=== PATIENT | female | born 2000 | race African-American/Black ===

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

== ENCOUNTER 2020-08-31 16:14 | Emergency (ER) | payer OTHER ==
[~2020-08-31] VITALS: Ht 167.6 cm; Wt 104.8 kg
[~2020-08-31 16:14] MED LIST: MACROBID 100 M100 M1 PO
[2020-08-31] MEDS ORDERED: HYDROCODONE-ACE15 ML PO (18:09)
[2020-08-31] MEDS ORDERED: AUGMENTIN 875-1 EACH PO (18:09)
[2020-08-31] MEDS ORDERED: NAPROSYN500 MG PO (18:09)
[2020-08-31 18:22] VITALS: BP 140/85
== END 2020-08-31 18:27 | disposition home or self-care (01) ==
LOC: ER 16:14
DX: J02.0 Streptococcal pharyngitis (principal); R00.0 Tachycardia, unspecified

== ENCOUNTER 2021-01-03 18:26 | Emergency (ER) | payer OTHER ==
[~2021-01-03] VITALS: Ht 165.1 cm; Wt 111.1 kg
[~2021-01-03 18:26] MED LIST changes: +AUGMENTIN 875-1 EACH PO; +HYDROCODONE-ACE15 ML PO; +NAPROSYN500 MG PO
[2021-01-03 19:45] LABS: URINE BILIRUBIN NEGATIVE (Negative); URINE BLOOD NEGATIVE (Negative); URINE CLARITY CLEAR; URINE COLOR YELLOW; URINE GLUCOSE-RANDOM* NEGATIVE (Negative); URINE KETONES NEGATIVE (Negative); URINE LEUKOCYTES-REFLEX NEGATIVE (Negative); URINE NITRITE-REFLEX NEGATIVE (Negative); URINE PROTEIN (DIPSTICK) NEGATIVE (Negative); URINE SPECIFIC GRAVITY 1.025 (1.005-1.035); URINE UROBILINOGEN 0.2 E.U./dl (0.2-1.0)
[2021-01-03 21:38] LABS: ABSOLUTE NEUTROPHILS 6.1 thou/uL (1.4-8.2); BASOPHILS 0.7 % (0.0-2.0); EOSINOPHILS 2.8 % (0.0-3.0); HEMATOCRIT 40.9 % (37.0-47.0); HEMOGLOBIN 13.6 gm/dL (12.0-15.0); LYMPHOCYTES 20.5 % (24.0-44.0); MCH 27.9 pg (26.0-34.0); MCHC 33.3 g/dL (28.0-37.0); MCV 83.6 fL (80.0-100.0); MONOCYTES 5.4 % (1.0-8.0); PLATELET COUNT 383 thou/uL (150-400); POLYS 70.6 % (36.0-66.0); RBC 4.89 mil/uL (4.20-5.00); RDW 13.7 % (10.5-14.5); WBC 8.7 thou/uL (4.0-11.0)
[2021-01-03 21:52] LABS: CALCIUM 9.5 mg/dL (8.5-10.1); CREATININE 0.8 mg/dL (0.6-1.0); POTASSIUM 4.2 mmol/L (3.5-5.1)
[2021-01-03 21:59] LABS: ALBUMIN 3.9 g/dL (3.4-5.0); MAGNESIUM 1.9 mg/dL (1.8-2.4); TOTAL BILIRUBIN 0.2 mg/dL (0.2-1.0); TOTAL PROTEIN 8.5 g/dL (6.4-8.2)
[2021-01-03 23:15] VITALS: BP 128/76
== END 2021-01-03 23:15 | disposition home or self-care (01) ==
LOC: ER 18:26
PROVIDERS: Physician Assistant
DX: R20.0 Anesthesia of skin (principal); Z79.1 Long term (current) use of non-steroidal anti-inflammatories (NSAID); Z79.891 Long term (current) use of opiate analgesic

== ENCOUNTER 2021-08-13 17:09 | Inpatient (IN) | payer OTHER ==
[~2021-08-13] VITALS: Ht 165.1 cm; Wt 111.6 kg
[2021-08-13 17:10] VITALS: BP 141/81
[2021-08-13 18:03] LABS: ABSOLUTE NEUTROPHILS 6.3 thou/uL (1.4-8.2); BASOPHILS 0.8 % (0.0-2.0); HEMATOCRIT 40.9 % (37.0-47.0); HEMOGLOBIN 13.7 gm/dL (12.0-15.0); LYMPHOCYTES 19.1 % (24.0-44.0); MCH 28.3 pg (26.0-34.0); MCHC 33.6 g/dL (28.0-37.0); MCV 84.2 fL (80.0-100.0); MONOCYTES 5.6 % (1.0-8.0); PLATELET COUNT 381 thou/uL (150-400); POLYS 72.5 % (36.0-66.0); RBC 4.86 mil/uL (4.20-5.00); RDW 13.6 % (10.5-14.5); WBC 8.7 thou/uL (4.0-11.0)
[2021-08-13 18:09] LABS: CALCIUM 9.2 mg/dL (8.5-10.1); CREATININE 0.8 mg/dL (0.6-1.0); POTASSIUM 3.9 mmol/L (3.5-5.1)
[2021-08-13 18:15] LABS: TOTAL BILIRUBIN 0.3 mg/dL (0.2-1.0); TOTAL PROTEIN 8.2 g/dL (6.4-8.2)
[2021-08-13 18:43] LABS: FOLIC ACID 16.4 ng/mL (8.6-58.9)
[2021-08-13 20:40] VITALS: BP 108/86
[2021-08-13 21:18] VITALS: BP 117/42
[2021-08-13 21:36] LABS: URINE BILIRUBIN NEGATIVE (Negative); URINE BLOOD NEGATIVE (Negative); URINE CLARITY CLEAR; URINE COLOR YELLOW; URINE GLUCOSE-RANDOM* NEGATIVE (Negative); URINE KETONES NEGATIVE (Negative); URINE LEUKOCYTES-REFLEX NEGATIVE (Negative); URINE NITRITE-REFLEX NEGATIVE (Negative); URINE PROTEIN (DIPSTICK) NEGATIVE (Negative); URINE SPECIFIC GRAVITY 1.025 (1.005-1.035); URINE UROBILINOGEN 0.2 E.U./dl (0.2-1.0)
[2021-08-13 21:54] VITALS: BP 123/71
[2021-08-13 23:27] VITALS: BP 112/60
[2021-08-14 04:26] VITALS: BP 114/65
[2021-08-14 05:38] LABS: CALCIUM 8.8 mg/dL (8.5-10.1); CREATININE 0.8 mg/dL (0.6-1.0); POTASSIUM 4.4 mmol/L (3.5-5.1)
[2021-08-14 07:15] VITALS: BP 120/49
[2021-08-19 11:21] LABS: ANTI-DNA SCREEN 1 IU/mL (0-9); ANTI-RNP 0.3 AI (0.0-0.9)
== END 2021-08-14 12:25 | disposition left against medical advice (07) | DRG 74 ==
LOC: ER 17:09 → 3W 21:19
PROVIDERS: Hospitalist; Nurse Practitioner Family; ADMIT Internal Medicine; ATTEND Internal Medicine
DX: G62.9 Polyneuropathy, unspecified (principal); R20.2 Paresthesia of skin; R32 Unspecified urinary incontinence; F12.90 Cannabis use, unspecified, uncomplicated; R39.15 Urgency of urination; Z53.29 Procedure and treatment not carried out because of patient's decision for other reasons; Z20.822 Contact with and (suspected) exposure to COVID-19; Z82.49 Family history of ischemic heart disease and other diseases of the circulatory system
CPT/HCPCS: 10879